=== PATIENT | male | born 1955 | race Caucasian/White ===

== ENCOUNTER → 2016-12-24 | Outpatient (CLI) | payer BC ==
[~2016-12-24] MED LIST: ACID REDUCER 1150 MG PO; ALDACTONE50 MG PO; AMBIEN 10MG10 MG PO; COMBIVENT RESPI1 SPR IH; COUMADIN5 M1 PO; COUMADIN7.5 MG PO; CRESTOR 10MG10 MG PO; CYMBALTA30 MG PO; CYMBALTA60 M1 PO; CYMBALTA60 MG PO; DEMADEX20 MG PO; ENDUR-ACIN500 MG PO; FEROSUL325 MG PO; FLOMAX 0.40.4 MG/CAP PO; FLOVENT DI250 MCG/Ac IH; FORADIL IH; GABAPENTIN300 M1 PO; GLUCOSAMINE PO; GOOD SENSE ASPI81 M1 PO; IBU PO; INDERAL60 MG PO; LANTUS100 U/ML SQ; LISINOPRIL5 MG PO; MULTIVITAMINS1 CTB PO; NEURONTIN100 MG PO; OXYCONTIN CR20 MG PO; POMEGRANATE WIT1 CAP PO; POTASSIUM CHLO20 ME3 PO; SINEQUAN 1010 MG/CAP PO; SYNTHROID0.025 MG PO; TOPAMAX 100MG100 M1 PO; TOPCARE ASPIRIN81 M1 PO; VITAMIN B122500 MC1 PO; VITAMIN C500 MG PO; VITAMIN E1000 U/CAP PO; XANAX0.25 MG PO; ZYRTEC ALLERGY10 MG PO; [UNRECOGNIZED DRUG - OTHER] PO
== END ==
LOC: LAB 12:28
DX: Z51.81 Encounter for therapeutic drug level monitoring (principal); Z79.01 Long term (current) use of anticoagulants; J44.9 Chronic obstructive pulmonary disease, unspecified; J40 Bronchitis, not specified as acute or chronic; I35.9 Nonrheumatic aortic valve disorder, unspecified; E03.9 Hypothyroidism, unspecified

== ENCOUNTER → 2017-02-25 | Outpatient (CLI) | payer BC ==
[2016-03-20 19:37] VITALS: BP 122/48
== END ==
LOC: LAB 09:05
DX: E11.9 Type 2 diabetes mellitus without complications (principal); D64.9 Anemia, unspecified

== ENCOUNTER → 2017-07-21 | Outpatient (CLI) | payer BC ==
[2016-03-20 19:37] VITALS: BP 122/48
== END ==
LOC: RAD 16:23
DX: K59.00 Constipation, unspecified (principal); F41.9 Anxiety disorder, unspecified; R60.9 Edema, unspecified; I10 Essential (primary) hypertension

== ENCOUNTER 2017-08-24 07:29 | Emergency (ER) | payer BC ==
[2017-08-24 08:29] LABS: PARTIAL THROMBOPLASTIN TIME 29.4 SECONDS (21.0-32.0)
[2017-08-24 08:33] LABS: HEMATOCRIT 33.2 % (42.0-52.0); HEMOGLOBIN 11.1 g/dL (13.5-18.0); MEAN CELL VOLUME 87 fl (78-100); MEAN CORPUSCULAR HEMOGLOBIN 29 pg (27-31); MEAN CORPUSCULAR HGB CONC 33 g/dL (33-37); MEAN PLATELET VOLUME 11.1 fl (7.4-10.4); PLATELET COUNT 256 K/mm3 (130-400); RED BLOOD COUNT 3.81 M/mm3 (4.20-5.60); RED CELL DISTRIBUTION WIDTH 13.7 % (11.5-14.5)
[2017-08-24 08:40] LABS: ALBUMIN 3.8 g/dL (3.5-5.0); BUN/CREATININE RATIO 14.6 (6.0-26.0); CALCIUM 9.9 mg/dL (8.4-10.2); POTASSIUM 3.6 mmol/L (3.6-5.0); TOTAL BILIRUBIN 0.9 mg/dL (0.2-1.3); TOTAL PROTEIN 7.3 g/dL (6.3-8.2)
[2017-08-24 08:43] LABS: CKMB ISOENZYME 11.7 ng/mL (0.6-3.5); TROPONIN-I < 0.03 ng/mL (0.00-0.06)
[2017-08-24 09:15] LABS: PH-URINE 8.5 (5.0 - 8.0); URINE APPEARANCE HAZY; URINE BILIRUBIN NEGATIVE (NEGATIVE); URINE BLOOD 250 ery/uL (NEGATIVE); URINE COLOR YELLOW; URINE GLUCOSE NEGATIVE (NEGATIVE); URINE KETONE NEGATIVE (NEGATIVE); URINE NITRATE NEGATIVE (NEGATIVE); URINE PROTEIN(semi-quant) 2+ mg/dL (NEGATIVE); URINE UROBILINOGEN NORMAL (NORMAL)
[2017-08-24 09:16] LABS: URINE LEUKOCYTE ESTERASE NEGATIVE (NEGATIVE); URINE MUCUS PRESENT (NOT PRESENT)
[2017-08-24 09:21] LABS: BAND 0 % (0-10); LYMPHOCYTE 15 % (20-51); MONOCYTE 6 % (3-10); NEUTROPHILS 78 % (42-75)
[2017-08-24 09:22] LABS: NUCLEATED RED BLOOD CELL 2 (0-6)
[2017-08-24 11:03] VITALS: BP 159/54
== END 2017-08-24 11:25 | disposition short-term general hospital (02) ==
LOC: ED 07:29
PROVIDERS: Physician Assistant
DX: A41.9 Sepsis, unspecified organism (principal); R00.1 Bradycardia, unspecified; R41.82 Altered mental status, unspecified; I25.10 Atherosclerotic heart disease of native coronary artery without angina pectoris; I10 Essential (primary) hypertension; Z95.2 Presence of prosthetic heart valve; Z79.01 Long term (current) use of anticoagulants; E03.9 Hypothyroidism, unspecified; F32.9 Major depressive disorder, single episode, unspecified; G47.33 Obstructive sleep apnea (adult) (pediatric); N40.0 Benign prostatic hyperplasia without lower urinary tract symptoms; E11.40 Type 2 diabetes mellitus with diabetic neuropathy, unspecified; Z87.891 Personal history of nicotine dependence; Z95.1 Presence of aortocoronary bypass graft; Z79.4 Long term (current) use of insulin
CPT/HCPCS: A4354; J2270; J2543; J3370; J7030; J7050

== ENCOUNTER → 2017-09-08 | Outpatient (CLI) | payer BC ==
[2017-08-24 11:03] VITALS: BP 159/54
[2017-09-08 16:22] LABS: EOS # 0.3 (0.04-0.40); EOS % 4.2 % (0.0-4.0); HEMATOCRIT 36.7 % (42.0-52.0); HEMOGLOBIN 11.9 g/dL (13.5-18.0); LYMPH# 1.2 (1.50-4.00); MEAN CELL VOLUME 90 fl (78-100); MEAN CORPUSCULAR HEMOGLOBIN 29 pg (27-31); MEAN CORPUSCULAR HGB CONC 32 g/dL (33-37); MEAN PLATELET VOLUME 10.4 fl (7.4-10.4); MONO # 0.8 (0.20-0.80); NEU # 5.3 (1.40-6.50); PLATELET COUNT 244 K/mm3 (130-400); RED BLOOD COUNT 4.09 M/mm3 (4.20-5.60); RED CELL DISTRIBUTION WIDTH 14.9 % (11.5-14.5); WHITE BLOOD COUNT 7.6 K/mm3 (4.8-10.8)
[2017-09-08 16:42] LABS: ALBUMIN 3.9 g/dL (3.5-5.0); BUN/CREATININE RATIO 9.6 (6.0-26.0); CALCIUM 9.3 mg/dL (8.4-10.2); TOTAL BILIRUBIN 0.6 mg/dL (0.2-1.3); TOTAL PROTEIN 7.5 g/dL (6.3-8.2)
== END ==
LOC: LAB 15:59
PROVIDERS: Family Medicine
DX: R10.13 Epigastric pain (principal); R11.2 Nausea with vomiting, unspecified

== ENCOUNTER → 2017-10-14 | Outpatient (CLI) | payer BC | LOC: LAB 15:53 | DX: E11.9 Type 2 diabetes mellitus without complications (principal); Z88.5 Allergy status to narcotic agent ==

== ENCOUNTER → 2017-12-02 | Outpatient (CLI) | payer BC ==
[2017-12-02 11:20] LABS: BUN/CREATININE RATIO 11.3 (6.0-26.0); CALCIUM 9.2 mg/dL (8.4-10.2)
[2017-12-02 11:36] LABS: POTASSIUM 3.8 mmol/L (3.6-5.0)
== END ==
LOC: LAB 10:43
PROVIDERS: Internal Medicine Clinical Cardiac Electrophysiology
DX: I25.10 Atherosclerotic heart disease of native coronary artery without angina pectoris (principal); I49.5 Sick sinus syndrome; Z95.1 Presence of aortocoronary bypass graft

== ENCOUNTER → 2017-12-24 | Outpatient (CLI) | payer BC | LOC: LAB 13:55 | DX: D64.9 Anemia, unspecified (principal); E11.9 Type 2 diabetes mellitus without complications ==

== ENCOUNTER → 2018-03-02 | Outpatient (CLI) | payer BC | LOC: RAD 11:40 | DX: M79.675 Pain in left toe(s) (principal); G89.29 Other chronic pain; I35.9 Nonrheumatic aortic valve disorder, unspecified; F41.9 Anxiety disorder, unspecified ==

== ENCOUNTER → 2018-05-16 | Outpatient (CLI) | payer BC | LOC: LAB 08:42 | PROVIDERS: Family Medicine | DX: E03.9 Hypothyroidism, unspecified (principal) ==

== ENCOUNTER → 2018-07-14 | Outpatient (CLI) | payer BC | LOC: RAD 11:45 | DX: M79.604 Pain in right leg (principal) ==

== ENCOUNTER → 2018-08-12 | Outpatient (CLI) | payer BC ==
[2018-08-12 18:42] LABS: URINE APPEARANCE CLEAR; URINE COLOR YELLOW
[2018-08-12 18:43] LABS: PH-URINE 5.5 (5.0 - 8.0); URINE BILIRUBIN NEGATIVE (NEGATIVE); URINE BLOOD NEGATIVE (NEGATIVE); URINE GLUCOSE NEGATIVE (NEGATIVE); URINE KETONE NEGATIVE (NEGATIVE); URINE LEUKOCYTE ESTERASE NEGATIVE (NEGATIVE); URINE NITRATE NEGATIVE (NEGATIVE); URINE PROTEIN(semi-quant) NEGATIVE (NEGATIVE); URINE UROBILINOGEN NORMAL (NORMAL); URINE WBC 0-1 /hpf (0-3)
[2018-08-12 18:46] LABS: PROTHROMBIN TIME 15.1 SECONDS (9.0-12.0)
[2018-08-12 19:41] LABS: HEMOGLOBIN 14.1 g/dL (13.5-18.0); MEAN PLATELET VOLUME 11.2 fl (7.4-10.4); RED BLOOD COUNT 4.73 M/mm3 (4.20-5.60); WHITE BLOOD COUNT 8.6 K/mm3 (4.8-10.8)
[2018-08-12 19:46] LABS: ALBUMIN 4.4 g/dL (3.5-5.0); CALCIUM 9.7 mg/dL (8.4-10.2); POTASSIUM 3.6 mmol/L (3.6-5.0); TOTAL BILIRUBIN 0.5 mg/dL (0.2-1.3)
== END ==
LOC: RAD 14:46
PROVIDERS: Family Medicine
DX: K59.03 Drug induced constipation (principal); R33.9 Retention of urine, unspecified; F41.9 Anxiety disorder, unspecified; K92.1 Melena

== ENCOUNTER → 2018-08-29 | Outpatient (CLI) | payer BC ==
[2018-08-29 12:11] LABS: ALBUMIN 4.6 g/dL (3.5-5.0); CALCIUM 9.9 mg/dL (8.4-10.2); POTASSIUM 4.1 mmol/L (3.6-5.0); TOTAL BILIRUBIN 0.7 mg/dL (0.2-1.3); TOTAL PROTEIN 8.3 g/dL (6.3-8.2)
== END ==
LOC: LAB 11:33
PROVIDERS: Family Medicine
DX: I25.10 Atherosclerotic heart disease of native coronary artery without angina pectoris (principal)

== ENCOUNTER → 2018-11-16 | Outpatient (CLI) | payer BC ==
[2018-11-16 16:00] LABS: PROTHROMBIN TIME 53.6 SECONDS (9.0-12.0)
== END ==
LOC: LAB 14:23
PROVIDERS: Family Medicine
DX: I35.9 Nonrheumatic aortic valve disorder, unspecified (principal)

== ENCOUNTER → 2019-03-16 | Outpatient (CLI) | payer BC ==
[2019-03-16 12:39] LABS: POTASSIUM 5.4 mmol/L (3.5-5.1)
[2019-03-16 12:40] LABS: CALCIUM 9.6 mg/dL (8.3-10.5)
== END ==
LOC: RAD 12:00
PROVIDERS: Family Medicine
DX: I51.7 Cardiomegaly (principal); Z95.0 Presence of cardiac pacemaker

== ENCOUNTER → 2019-03-23 | Outpatient (CLI) | payer BC ==
[2019-03-23 15:05] LABS: POTASSIUM 4.2 mmol/L (3.5-5.1)
[2019-03-23 15:06] LABS: CALCIUM 8.8 mg/dL (8.3-10.5)
== END ==
LOC: LAB 14:44
PROVIDERS: Family Medicine
DX: I10 Essential (primary) hypertension (principal); R60.9 Edema, unspecified